=== PATIENT | male | born 1970 | race Caucasian/White ===

== ENCOUNTER 2021-10-12 18:10 | Emergency (ER) | payer OTHER ==
[2021-10-12 19:03] LABS: HEMOGLOBIN 16.1 gm/dl (14.0-17.5); RED BLOOD COUNT 5.22 M/UL (4.20-5.50); WHITE BLOOD COUNT 5.1 K/UL (4.5-11.0)
[2021-10-12 20:05] LABS: BUN/CREATININE RATIO 7 (0-10)
== END 2021-10-12 21:21 | disposition home or self-care (01) ==
LOC: ER1 18:10
PROVIDERS: Physician Assistant Medical
DX: R10.31 Right lower quadrant pain (principal); F17.200 Nicotine dependence, unspecified, uncomplicated; Z87.710 Personal history of (corrected) hypospadias
CPT/HCPCS: 80053; 81001; 83605; 85025; 99283

== ENCOUNTER → 2021-10-24 | Outpatient (CLI) | payer OTHER ==
[~2021-10-24] MED LIST: BENTYL 10MG CAP10 MG PO; ZOFRAN 4 MG TAB4 MG PO
== END ==
LOC: OPSV2 09:00
DX: Z01.810 Encounter for preprocedural cardiovascular examination (principal); K40.90 Unilateral inguinal hernia, without obstruction or gangrene, not specified as recurrent; Z87.891 Personal history of nicotine dependence
CPT/HCPCS: 93005

== ENCOUNTER 2021-11-18 22:45 | Observation (INO) | payer OTHER ==
[~2021-11-18] VITALS: Ht 182.9 cm; Wt 92.5 kg
[~2021-11-18 22:45] MED LIST changes: -COLACE100 MG PO; -HYDROCODON-ACE1 EAC2 PO
[2021-11-19 02:24] LABS: HEMOGLOBIN 13.2 gm/dl (14.0-17.5); RED BLOOD COUNT 4.27 M/UL (4.20-5.50)
[2021-11-19 08:19] LABS: HEMOGLOBIN 13.3 gm/dl (14.0-17.5); RED BLOOD COUNT 4.24 M/UL (4.20-5.50); WHITE BLOOD COUNT 7.8 K/UL (4.5-11.0)
[2021-11-19] MEDS ORDERED: COLACE100 MG PO (09:22)
[2021-11-19] MEDS ORDERED: HYDROCODON-ACE1 EAC2 PO (09:22)
[2021-11-19 13:20] LABS: HEMOGLOBIN 13.6 gm/dl (14.0-17.5); RED BLOOD COUNT 4.37 M/UL (4.20-5.50)
[2021-11-19 13:21] LABS: WHITE BLOOD COUNT 10.2 K/UL (4.5-11.0)
== END 2021-11-19 02:23 | disposition home or self-care (01) ==
LOC: MED SURG 4 22:45
PROVIDERS: ADMIT Surgery
DX: K91.870 Postprocedural hematoma of a digestive system organ or structure following a digestive system procedure (principal); G89.18 Other acute postprocedural pain; F17.210 Nicotine dependence, cigarettes, uncomplicated; Z20.822 Contact with and (suspected) exposure to COVID-19
CPT/HCPCS: 36415; 85027; 96374; G0378; G0379; J2270; U0002

== ENCOUNTER → 2021-11-18 | Day surgery (SDC) | payer OTHER ==
[~2021-11-18] VITALS: Ht 182.9 cm; Wt 93.0 kg
[~2021-11-18] MED LIST changes: +COLACE100 MG PO; +HYDROCODON-ACE1 EAC2 PO; +IBUPROFEN200 MG PO
== END | disposition home or self-care (01) ==
LOC: OR 06:01
DX: K40.90 Unilateral inguinal hernia, without obstruction or gangrene, not specified as recurrent (principal); K91.870 Postprocedural hematoma of a digestive system organ or structure following a digestive system procedure; G89.18 Other acute postprocedural pain; D17.6 Benign lipomatous neoplasm of spermatic cord; U07.1 COVID-19; F17.210 Nicotine dependence, cigarettes, uncomplicated; G47.30 Sleep apnea, unspecified
CPT/HCPCS: C1713; C1781; J0690; J1100; J1170; J1885; J2001; J2250; J2405; J2704; J2710; J3010; J7030; J7120

== ENCOUNTER 2021-11-26 23:38 | Observation (INO) | payer OTHER ==
[~2021-11-26] VITALS: Ht 182.9 cm; Wt 93.0 kg
[~2021-11-26 23:38] MED LIST changes: +COLACE100 MG PO; +HYDROCODON-ACE1 EAC2 PO
[2021-11-27 00:40] LABS: HEMOGLOBIN 12.8 gm/dl (14.0-17.5); RED BLOOD COUNT 4.08 M/UL (4.20-5.50); WHITE BLOOD COUNT 8.2 K/UL (4.5-11.0)
[2021-11-27 00:59] LABS: BUN/CREATININE RATIO 14 (0-10)
[2021-11-28] MEDS ORDERED: HYDROCODON-ACE1 EAC2 PO (08:15)
== END 2021-11-28 09:36 | disposition home or self-care (01) ==
LOC: ER1 23:38 → CDU 11-27 02:12 → MED SURG 4 11-27 03:59
PROVIDERS: Physician Assistant; ADMIT Surgery
DX: K91.870 Postprocedural hematoma of a digestive system organ or structure following a digestive system procedure (principal); F17.210 Nicotine dependence, cigarettes, uncomplicated; Z20.822 Contact with and (suspected) exposure to COVID-19
CPT/HCPCS: 80053; 81001; 85025; 87086; 96374; 96375; 99285; G0378; J0690; J1100; J1170; J1885; J2001; J2250; J2270; J2405; J2704; J3010; J7120; Q9967; U0002